=== PATIENT | male | born 1955 | race Two or more races ===

== ENCOUNTER 2017-11-03 15:50 | Inpatient (IN) | payer BC ==
[~2017-11-03] VITALS: Ht 165.1 cm; Wt 75.3 kg
[2017-11-03] MEDS ORDERED: MAGNESIUM HYDROXIDE 30 ML UDC PO PRN (17:30)
[2017-11-03] MEDS ORDERED: ACETAMINOPHEN 650 MG/SUPP.RECT RC PRN (17:30)
[2017-11-03] MEDS ORDERED: HYDROMORPHONE INJ 2 MG/ML DISP.SYRIN IV PRN (17:30)
[2017-11-03] MEDS: IV NS 0.9% 1,000 ML IV PRN (21:29)
[2017-11-03 22:00] VITALS: BP 137/87
[2017-11-03] MEDS ORDERED: CEFTRIAXONE 1 G in IV D5W 50 ML IV SCH (22:00)
[2017-11-03] MEDS ORDERED: METRONIDAZOLE 500MG/ NS 100ML 100 ML IV ONE (22:06)
[2017-11-03] MEDS: HYDROMORPHONE INJ 0.5 MG/0.5 ML SYRINGE IV PRN (22:26)
[2017-11-03] MEDS: ENOXAPARIN SODIUM 40 MG/0.4 ML DISP.SYRIN SQ SCH (22:36)
--- NOTE | 2017-11-03 23:17 | NUR ---
MS RN NOTES RECEIVE PT FROM [facility]IA [facility] WITH 2 EMT'S AT 2122, PT IS A/O X 4, ON 2LPM VIA [place] 02 SAT AT 98% STABLE, NO S/S OF DISTRESS, PATIENT KEPT COMFORTABLE AT THIS TIME, SAFETY MEASURES IN PLACE, CALL LIGHT WITHIN REACH, WILL CONTINUE TO MONITOR. HEAD TO TOE SKIN ASSESSMENT IS DONE SKIN IS INTACT, PT CONCERNED LITTLE BUMP OF LEFT HIP WILL DEFER MD, WOUND CARE CONSULT.
[2017-11-03] MEDS: METRONIDAZOLE 500MG/ NS 100ML 500 MG in PREMIX 1 EA IV SCH (23:23)
[2017-11-04] MEDS: HYDROMORPHONE INJ 0.5 MG/0.5 ML SYRINGE IV PRN ×5 (02:28→22:49)
[2017-11-04] MEDS ORDERED: METRONIDAZOLE 500MG/ NS 100ML 100 ML IV ONE (05:12)
[2017-11-04] MEDS: METRONIDAZOLE 500MG/ NS 100ML 500 MG in PREMIX 1 EA IV SCH ×4 (05:17→23:01)
--- NOTE | 2017-11-04 06:21 | NUR ---
MS RN CLOSING NOTES PATIENT IN BED COMFORTABLY ASLEEP AND EASILY AWAKEN, IN STABLE CONDITION. NOT IN FORM OF DISTRESS. NO SOB, ON 2LPM VIA NC 02 SAT 95% NEEDS ATTENDED AND ANTICIPATED. NURSING CARE RENDERED, KEPT CLEAN AND DRY AND COMFORTABLE. NO C/O OF PAIN AT THIS MOMENT. ON LOW BED TO ENSURE SAFETY, CALL LIGHT WITHIN REACH, WILL ENDORSE TO THE NEXT SHIFT CONTINUE PLAN OF CARE.
[2017-11-04] MEDS ORDERED: HYDROMORPHONE INJ 0.5 MG/0.5 ML SYRINGE ONE (06:33)
[2017-11-04 06:44] LABS: HEMATOCRIT 54 % (39-51); HEMOGLOBIN 18.8 g/dL (13.5-17.5); LYMPHOCYTES # (AUTO) 0.6 /CMM (0.8-4.8); LYMPHOCYTES % (AUTO) 2.2 % (20.0-44.0); MEAN CORPUSCULAR HEMOGLOBIN 32 PG (26.0-33.0); MEAN CORPUSCULAR HGB CONC 35 g/dl (31.0-36.0); MEAN CORPUSCULAR VOLUME 91 fL (80-96); MONOCYTES # (AUTO) 1.4 /CMM (0.1-1.30); MONOCYTES % (AUTO) 5.1 % (2.0-12.0); NEUTROPHILS # (AUTO) 24.6 /CMM (1.8-8.9); NEUTROPHILS % (AUTO) 92.7 % (43.0-81.0); PLATELET COUNT (AUTO) 277 /CMM (150-450); RDW COEFFICIENT OF VARIATION 13.8 (11.5-15.0); RED BLOOD CELL COUNT(AUTO) 5.93 MIL/uL (4.5-6.0); WHITE BLOOD COUNT (AUTO) 26.5 K/uL (4.3-11.0)
[2017-11-04 06:53] LABS: CALCIUM, SERUM 8.2 mg/dL (8.5-10.1); CREATININE 1.2 mg/dL (0.6-1.3); MAGNESIUM 1.9 mg/dL (1.8-2.4); POTASSIUM 4.3 mmol/L (3.5-5.1)
--- NOTE | 2017-11-04 07:22 | NUR ---
MS RN OPENING NOTES PATIENT RECEIVED COMFORTABLY ASLEEP IN BED, AROUSABLE EASILY. A/O X 4. VERBALLY RESPONSIVE, DENIES PAIN OR DISCOMFORTS AT THIS TIME. PT FOR HIDA SCAN TODAY, NPO MAINTAINED. ON 2LPM VIA N/C, BREATHING EVEN AND UNLABORED. IV ACCESS ON LAC INTACT AND PATENT, IVF OF NS AT 75ML/HR IN PROGRESS, NO SIGNS OF INFILTRATION NOTED. BED ON LOW/LOCKED POSITION. CALL LIGHT WITHIN REACH. WILL CONTINUE TO MONITOR PT ACCORDINGLY.
[2017-11-04] MEDS: PANTOPRAZOLE 40 MG VIAL IV SCH (07:59)
[2017-11-04 08:00] VITALS: BP 124/84
[2017-11-04] MEDS: CEFTRIAXONE 1 G in IV D5W 50 ML IV SCH (08:35)
[2017-11-04] MEDS ORDERED: HYDROMORPHONE INJ 0.5 MG/0.5 ML SYRINGE IV ONE (11:30)
[2017-11-04 11:37] LABS: ALBUMIN 3.4 g/dL (3.4-5.0); BILIRUBIN,DIRECT 0.2 mg/dL (0.0-0.2); BILIRUBIN,TOTAL 1.1 mg/dL (0.2-1.0); TOTAL PROTEIN, SERUM 7.3 g/dL (6.4-8.2)
[2017-11-04] MEDS: ONDANSETRON HCL/PF 4 MG/2 ML VIAL IVP PRN (11:39)
--- NOTE | 2017-11-04 11:45 | NUR ---
RN NOTES HUGO MURRAY ON UNIT AND REPORTED ALL ABNORMAL LAB VALUES. WILL CONTINUE TO MONITOR
[2017-11-04 12:51] LABS: BAND % (MANUAL) 3 % (0.0-5.0); LYMPHOCYTES % (MANUAL) 2 % (16-48); MONOCYTES % (MANUAL) 7 % (0-11.0); NEUTROPHILS % (MANUAL) 88 (42-76)
--- NOTE | 2017-11-04 12:55 | NUR ---
RN NOTES PATIENT JUST LEFT FOR HIDA SCAN VIA WHEEL CHAIR.
--- NOTE | 2017-11-04 13:29 | NUR ---
NM: HIDA SCAN WAS COMPLETED
[2017-11-04 16:00] VITALS: BP 122/84
[2017-11-04] MEDS: IV NS 0.9% 1,000 ML IV PRN (16:24)
--- NOTE | 2017-11-04 17:53 | NUR ---
RN NOTES PT SEEN BY DR RAYMUNDO WITH ORDER TO GIVE CLEAR LIQUID AT DINNER TIME AND NPO POST MIDNIGHT. HE ORDERED ALSO TO CHECK LIPASE LEVEL TOMORROW MORNING AND IF LBAS AND STUDIES ARE OK HE WILL PROCEED WITH SURGERY IN THE AFTERNOON. WILL CONTINUE TO MONITOR.
--- NOTE | 2017-11-04 18:27 | NUR ---
MS RN CLOSING NOTES PATIENT AWAKE AND RESTING IN BED AT MODERATE HIGH BACKREST WITH FAMILY AT BEDSIDE. A/O X 4, SAME ABLE TO MAKE NEEDS KNOWN IN [place]. ON 02 VIA N/C @ 2LPM, BREATHING EVEN AND UNLABORED, NO SIGNS OF ACUTE RESPIRATORY DISTRESS NOTED DURING THE DAY. IV ACCESS ON LAC INTACT AND PATENT WITH IVF OF NS AT 75ML/HR INFUSING, NO SIGNS OF INFILTRATION NOTED. MAINTAIN BED ON LOW/LOCKED POSITION. CALL LIGHT AND BEDSIDE TABLE KEPT WITHIN EASY REACH OF PT. NPO WILL BE ENFORCED POST MIDNIGHT, PT IS AWARE. ALL NEEDS AND CARE ATTENDED WELL. WILL ENDORESD TO PROGRAM TECHNICIAN NURSE FOR MELISSA. .
--- NOTE | 2017-11-04 19:00 | NUR ---
RN NOTES RECEIVE PT IN BED, A/O X 4, STABLE, ON O2 2LPM VIA NC 02 SAT AT 98%. NO S/S OF DISTRESS, PATIENT KEPT COMFORTABLE AT THIS TIME, SAFETY MEASURES IN PLACE, CALL LIGHT WITHIN REACH, WILL CONTINUE TO MONITOR.
[2017-11-04 20:00] VITALS: BP 133/86
[2017-11-04] MEDS: ENOXAPARIN SODIUM 40 MG/0.4 ML DISP.SYRIN SQ SCH (21:00)
--- NOTE | 2017-11-04 21:00 | NUR ---
LOVENOX 40 MG NON ADMINISTRATION PER PT HE DOESN'T WANT IT DESPITE EXPLAINING RISK AND BENEFITS OFFERED 3 TIMES STILL REFUSED M.D ON JULIA;L MADE AWARE
[2017-11-05] VITALS (16 sets, daily range): BP systolic 110–145; BP diastolic 72–97
[2017-11-05] MEDS: HYDROMORPHONE INJ 0.5 MG/0.5 ML SYRINGE IV PRN ×3 (02:51→11:25)
[2017-11-05] MEDS: METRONIDAZOLE 500MG/ NS 100ML 500 MG in PREMIX 1 EA IV SCH (05:03)
--- NOTE | 2017-11-05 06:21 | NUR ---
MS RN CLOSING NOTES PT COMFORTABLY ASLEEP IN BED AND EASILY AWAKEN, NOT IN RESPIRATORY DISTRESS ON 2LPM VIA NC 02 SAT AT 100% HEAD OF BED ELEVATED AT ALL TIMES FOR BETTER LUNG EXPANSION AND GOOD CIRCULATION. STABLE, NOT APPEAR IN DISTRESS. NEEDS ATTENDED AND ANTICIPATED. KEPT CLEAN AND DRY AND COMFORTABLE. NURSING CARE RENDERED. ON LOW BED TO ENSURE SAFETY, CALL LIGHT WITHIN REACH, WILL ENDORSE TO THE NEXT SHIFT CONTINUE PLAN OF CARE.
[2017-11-05] MEDS ORDERED: HYDROMORPHONE INJ 0.5 MG/0.5 ML SYRINGE ONE (06:39)
[2017-11-05 06:46] LABS: CALCIUM, SERUM 7.2 mg/dL (8.5-10.1); CREATININE 1.7 mg/dL (0.6-1.3); POTASSIUM 4.4 mmol/L (3.5-5.1)
[2017-11-05 06:49] LABS: HEMATOCRIT 51 % (39-51); HEMOGLOBIN 17.5 g/dL (13.5-17.5); LYMPHOCYTES # (AUTO) 0.7 /CMM (0.8-4.8); LYMPHOCYTES % (AUTO) 2.3 % (20.0-44.0); MEAN CORPUSCULAR HEMOGLOBIN 31 PG (26.0-33.0); MEAN CORPUSCULAR HGB CONC 34 g/dl (31.0-36.0); MEAN CORPUSCULAR VOLUME 91 fL (80-96); MONOCYTES # (AUTO) 1.1 /CMM (0.1-1.30); MONOCYTES % (AUTO) 3.5 % (2.0-12.0); NEUTROPHILS # (AUTO) 28.8 /CMM (1.8-8.9); NEUTROPHILS % (AUTO) 94.2 % (43.0-81.0); PLATELET COUNT (AUTO) 218 /CMM (150-450); RDW COEFFICIENT OF VARIATION 14.3 (11.5-15.0); RED BLOOD CELL COUNT(AUTO) 5.61 MIL/uL (4.5-6.0)
[2017-11-05 06:53] LABS: WHITE BLOOD COUNT (AUTO) 30.5 K/uL (4.3-11.0)
--- NOTE | 2017-11-05 07:09 | NUR ---
ENDORSE TO LAURIE CALL MD FOR AM LABS ABOUT CH WBC
[2017-11-05 07:21] LABS: BAND % (MANUAL) 6 % (0.0-5.0); MONOCYTES % (MANUAL) 3 % (0-11.0); NEUTROPHILS % (MANUAL) 91 (42-76)
--- NOTE | 2017-11-05 07:30 | NUR ---
MS RN OPENING NOTES RECEIVED PATIENT AWAKE IN BED IN NO ACUTE SIGNS OF DISTRESS. A/O X 4, MALAYSIAN SPEAKING, NO C/O PAIN OR DISCOMFORTS AT THIS TIME. ON 02 VIA N/C @ 2LPM, BREATHING EVEN AND UNLABORED. IV ACCESS ON LAC INTACT AND PATENT WITH IVF OF NS @ 75ML/HR INFUSING WELL, NO SIGNS OF INFILTRATION NOTED. BED IN LOW/LOCKED POSITION. CALL LIGHT AND BEDSIDE TABLE WITHIN EASY REACH OF PT. NPO MAINTAINED. ALL NEEDS AND CARE ATTENDED WELL. WILL CONTINUE TO MONITOR.
[2017-11-05 07:49] LABS: INR 1.3 (0.87-1.13)
[2017-11-05] MEDS: CEFTRIAXONE 1 G in IV D5W 50 ML IV SCH (08:21)
[2017-11-05] MEDS: PANTOPRAZOLE 40 MG VIAL IV SCH (08:21)
[2017-11-05] MEDS: ONDANSETRON HCL/PF 4 MG/2 ML VIAL IVP PRN ×2 (08:24→13:22)
--- NOTE | 2017-11-05 09:30 | NUR ---
RN NOTES PT'S HIGH WBC 30.5, LIPASE 6860, BUN 46, CREATININE 1.7 AND ALL OTHER ABNORMAL LAB RESULTS REPORTED TO HUGO MURRAY WITH ORDER TO D/C FLAGYL IV AND ROCEPHIN IV AND TO START ON IV MERREM 500MG Q 12HRS AND IV ZITHROMAX 250 Q24HRS, SAME ORDER TO COLLECT URINE SPECIMEN FO URINALYSIS PROFILE. CARDIO AND NEPHRO CONSULT ORDERED WELL. WILL CONTINUE TO MONITOR
--- NOTE | 2017-11-05 09:39 | NUR ---
RN NOTES URINE SPECIMEN COLLECTED AND CALLED LAB TO PICK IT UP.
[2017-11-05] MEDS ORDERED: VANCOMYCIN 1 GM in IV D5W 250 ML IV STA (09:58)
[2017-11-05] MEDS ORDERED: MEROPENEM 1,000 MG in IV NS 0.9% 100 ML IV SCH (10:00)
--- NOTE | 2017-11-05 11:10 | NUR ---
RT EKG DONE PER MD ORDER. REPORTED TO [facility]. NO SOB NOTED AT THIS TIME.
[2017-11-05] MEDS ORDERED: IV NS 0.9% 1,000 ML BAG IV ONE (11:30)
[2017-11-05 11:56] LABS: ALBUMIN 2.8 g/dL (3.4-5.0); BILIRUBIN,DIRECT 0.3 mg/dL (0.0-0.2); BILIRUBIN,TOTAL 1.4 mg/dL (0.2-1.0); TOTAL PROTEIN, SERUM 6.5 g/dL (6.4-8.2)
[2017-11-05 11:56] LABS: APPEARANCE,URINE CLEAR (CLEAR); BILIRUBIN,URINE NEGATIVE (NEGATIVE); BLOOD, URINE 1+ Ery/uL (NEGATIVE); COLOR,URINE ORANGE (YELLOW); KETONES,URINE NEGATIVE (NEGATIVE); LEUKOCYTE ESTERASE ,URINE NEGATIVE (NEGATIVE); NITRITE, URINE POSITIVE (NEGATIVE); PROTEIN,URINE 2+ mg/dl (NEGATIVE); UGLUCOSE TRACE mg/dL (NEGATIVE); UROBILINOGEN,URINE 0.2 EU/dL (0.2)
[2017-11-05 12:03] LABS: BACTERIA,URINE None seen /HPF (None Seen); RBC,URINE 0-2 /HPF (0-2); SQUAMOUS EPITHELIAL CELL,UR 0-2 /HPF (None Seen); WBC,URINE 0-2 /HPF (0-3)
[2017-11-05 12:04] LABS: MUCUS,URINE Few /LPF (None Seen); URINE AMORPHOUS URATE Few /HPF (None Seen)
--- NOTE | 2017-11-05 12:08 | NUR ---
RN NOTES PATIENT TRANSFERRED TO ICU AWAKE, ALERT AND ORIENTED X4. REPORT GIVEN TO ICU NURSE CLAIR.
[2017-11-05] MEDS: AZITHROMYCIN 500 MG in IV D5W 250 ML IV SCH (13:02)
[2017-11-05 14:05] LABS: ABG BASE EXCESS -2.6 mmol/L; ABG OXYGEN SATURATION 95.4 % (92.0-98.5); ABG PCO2 37.5 mmHg (35.0-45.0); ABG PH 7.385 (7.350-7.450); ABG PO2 75.5 mmHg (75.0-100.0); COHb 1.1 % (0.5-1.5); MetHb 0.7 % (0.0-1.5); O2Hb 93.7 % (94.0-97.0); SITE, ABG Left Radial; VENT MODE, BG NRB
[2017-11-05] MEDS ORDERED: ONDANSETRON HCL/PF 4 MG/2 ML VIAL IVP PRN (14:30)
[2017-11-05] MEDS: HYDROMORPHONE 1 MG/1 ML DISP.SYRIN IV PRN ×3 (15:01→22:14)
[2017-11-05] MEDS: MEROPENEM 1,000 MG in IV NS 0.9% 100 ML IV SCH (15:26)
--- NOTE | 2017-11-05 15:44 | NUR ---
FACTORY ENGINEER NOTE 1210: Received patient from MS. Awake, A/Ox4, Lao speaking, understands little Turkmen. Noted with 89% O2 sat on 4LPM of O2, placed on 6LPM of O2 via NC, sat 92% will monitor. 2PIVs intact. IV bolus ongoing 1L. With 2/10 abdominal pain, patient aware he just took 1 1/2 hour ago Dilaudid 1mg. 1220: S/E by Dr. Sorenson, placed Fuentes cath as ordered. Noted with clear coretta colored urine drained to BSD. 1345: Made Ovidio RESTRICTIVE PREPARATION OPERATOR aware re: pain med if able to increase frequency, he said he will come see patient soon. Also given Zofran and cchanged to q4 from q6. 1430: Placed on 10LPM of O2 simple mask for 91% O2 sat, made Ovidio RESTRICTIVE PREPARATION OPERATOR aware. S/E by Dr. Gonzalez, said to place on 15LPM NRB mask. 1445: Dr. Gonzalez aware for the ABG, will keep on 15LPM NRB mask per MD. Nolan changed order of Dilaudid 1mg to q3. 1500: Gave Dilaudid 1mg. 1530: Patient sleeping at this time, able to arouse easily. 93% O2 sat on 15LPM of O2 via NRB mask. No significant changes noted at this time. Kept clean, warm and dry. Needs attended. Kept call light at reach.
--- NOTE | 2017-11-05 18:25 | NUR ---
SEAM TAPER MACHINE NOTE No any significant cahnges. Kept on 15LPM of O2 via NRB mask. Sleeping, able to arouse easily.PIVs intact. IVF infusing as ordered.Kept clean, warm and dry. Fuentes cath intact, noted with 150-200mL q2.
[2017-11-05] MEDS: IV NS 0.9% 1,000 ML IV PRN (18:45)
--- NOTE | 2017-11-05 20:00 | NUR ---
received pt from day shift, a/o x4, follows commands, on non rebreather mask at 15L, NPO, f/c OK output, v/s stable, c/o pain, Dilaudid will be given, pt turns and repositions by himself.
[2017-11-05] MEDS: HEPARIN SODIUM, PORCINE 5000 UNITS/1 ML VIAL SQ SCH (21:19)
[2017-11-05] MEDS ORDERED: ACETAMINOPHEN 325 MG TABLET PO PRN (21:30)
[2017-11-06] VITALS (24 sets, daily range): BP systolic 99–146; BP diastolic 55–93
--- NOTE | 2017-11-06 00:25 | NUR ---
pt is resting in the bed, v/s stable, Dilaudid 1mg ivp given for pain.
[2017-11-06] MEDS: MEROPENEM 1,000 MG in IV NS 0.9% 100 ML IV SCH ×2 (01:20→13:04)
[2017-11-06] MEDS: IV NS 0.9% 1,000 ML IV PRN ×3 (01:21→22:50)
[2017-11-06] MEDS: HYDROMORPHONE 1 MG/1 ML DISP.SYRIN IV PRN ×2 (01:21→04:22)
--- NOTE | 2017-11-06 04:31 | NUR ---
pt is resting in the bed, no acute distress overnight, SR, ST, on non rebreather at 15L, sat 92-95%, OK urine output, v/s stable, c/o pain, Dilaudid 1mg ivp given, pt cleaned and changed.
[2017-11-06 05:40] LABS: BASOPHILS % (AUTO) 0.1 % (0.0-2.0); HEMATOCRIT 45 % (39-51); HEMOGLOBIN 15.2 g/dL (13.5-17.5); LYMPHOCYTES # (AUTO) 0.8 /CMM (0.8-4.8); LYMPHOCYTES % (AUTO) 3.4 % (20.0-44.0); MEAN CORPUSCULAR HEMOGLOBIN 31 PG (26.0-33.0); MEAN CORPUSCULAR HGB CONC 34 g/dl (31.0-36.0); MEAN CORPUSCULAR VOLUME 93 fL (80-96); MONOCYTES # (AUTO) 0.9 /CMM (0.1-1.30); NEUTROPHILS # (AUTO) 21.1 /CMM (1.8-8.9); NEUTROPHILS % (AUTO) 92.5 % (43.0-81.0); PLATELET COUNT (AUTO) 162 /CMM (150-450); RDW COEFFICIENT OF VARIATION 14.3 (11.5-15.0); RED BLOOD CELL COUNT(AUTO) 4.86 MIL/uL (4.5-6.0); WHITE BLOOD COUNT (AUTO) 22.9 K/uL (4.3-11.0)
[2017-11-06 05:50] LABS: ALBUMIN 2.2 g/dL (3.4-5.0); BILIRUBIN,DIRECT 0.2 mg/dL (0.0-0.2); BILIRUBIN,TOTAL 1.1 mg/dL (0.2-1.0); CALCIUM, SERUM 6.7 mg/dL (8.5-10.1); CREATININE 1.1 mg/dL (0.6-1.3); POTASSIUM 3.8 mmol/L (3.5-5.1); TOTAL PROTEIN, SERUM 5.7 g/dL (6.4-8.2)
[2017-11-06] MEDS ORDERED: HYDROMORPHONE INJ 2 MG/ML DISP.SYRIN ONE (06:14)
[2017-11-06] MEDS ORDERED: HYDROMORPHONE 1 MG/1 ML DISP.SYRIN IV PRN (06:30)
--- NOTE | 2017-11-06 07:00 | NUR ---
RN NOTES RECEIVED PT ON BED, A/Ox4, RESPIRATION EVEN AND UNLABORED, ON SOB NOTE, ON NR MASK AT 15L, O2 SAT 92%, ON TELE SR , HR IN 90'S , ADAME DRAINING TO GRAVITY WITH DIANA COLOR URIN , NPO AT THIS TIME , C/O ABDOMINAL PAIN , DOES NOT WANT PAIN MED AT THIS TIME , L HAND IV SITE G 20 SITE CDI, WITH NS RUNNING AT 150CC/HR , SR UP x3, CALL LIGHT WITHIN EASY REACH, BED LOCKED AND IN LOWEST POSITION ,CONTINUE TO MONITOR PT CLSOELY
[2017-11-06] MEDS: PANTOPRAZOLE 40 MG VIAL IV SCH (08:00)
[2017-11-06] MEDS: HEPARIN SODIUM, PORCINE 5000 UNITS/1 ML VIAL SQ SCH ×2 (08:01→21:00)
[2017-11-06] MEDS: HYDROMORPHONE INJ 0.5 MG/0.5 ML SYRINGE IV PRN ×6 (08:29→22:07)
--- NOTE | 2017-11-06 08:35 | NUR ---
WOUND CARE CONSULT: PT INDEPENDENT WITH BED MOBILITY. CURRENT NIURKA SCORE NOTED TO BE 20. PT HAS SMALL SOFT LUMP TO LEFT HIP AREA, NO DRAINAGE, REDNESS OR TENDERNESS NOTED. DEFER TO MD. WILL SEE PRN.
--- NOTE | 2017-11-06 10:00 | NUR ---
RN NOTES PT INSTRUCTED HOW TO USE I/S, PT RETURNED DEMONSTRATION , CONTINUE TO MONITOR
[2017-11-06 10:04] LABS: ABG BASE EXCESS 1.9 mmol/L; ABG OXYGEN SATURATION 95.9 % (92.0-98.5); ABG PCO2 44.9 mmHg (35.0-45.0); ABG PO2 80.6 mmHg (75.0-100.0); AaDO2 587.5 mmHg; COHb 0.4 % (0.5-1.5); MetHb 0.7 % (0.0-1.5); O2Hb 94.8 % (94.0-97.0); SITE, ABG Right Brachial; VENT MODE, BG non rebreather
--- NOTE | 2017-11-06 11:00 | NUR ---
RN NOTES PT WALKED AROUND NURSING STATION WITH PT , TOLERATED WELL, NO DISTRESS NOTED.
[2017-11-06] MEDS: AZITHROMYCIN 500 MG in IV D5W 250 ML IV SCH (11:04)
--- NOTE | 2017-11-06 14:00 | NUR ---
RN NOTES PT SITTING ON A CHAIR , NO SOB NOTED, SUPPORTIVE FAMILY AT THE BEDSIDE .
--- NOTE | 2017-11-06 16:07 | NUR ---
RN NOTES T=100.8 ORALLY, TYLENOL 650 SUPPOSITORY GIVEN , CONTINUE TO MONITOR .
--- NOTE | 2017-11-06 18:33 | NUR ---
RN NOTES PT RESTING AT THIS TIME , ON NR MASK, O2 SAT 95%, ON TELE ST HR IN 100'S, NPO , NS AT 100C/HR RUNNING VIA L FA IV, SITE CDI, T=99.1, BED LOCKED AND IN LOWEST POSITION , WILL ENDORSE TO TRAVEL AGENCY MANAGER NURSE FOR MELISSA.
--- NOTE | 2017-11-06 19:30 | NUR ---
BROTHEL KEEPER INITIAL NOTES RECEIVED PATIENT AWAKE A/OX 4, ABLE TO MAKE NEEDS KNOWN, PATIENT MOANING, C/O 9/10 ABDOMINAL AND BACK PAIN. NO RESPIRATORY DISTRESS NOTED, ON [id number] NON-REBREATHER. SKIN WARM AND DRY TO TOUCH. ON TELE MONITOR SINUS TACH. F/C DRAINING BY GRAVITY, PATENT AND INTACT. WITH IVF RUNNING. HOB ELEVATED. SIDE RAILS UP AND LOCKED. BED KEPT AT LOWEST POSITION. CALL LIGHT KEPT WITHIN EASY REACH. WILL CONTINUE TO MONITOR.
--- NOTE | 2017-11-06 20:30 | NUR ---
OBSERVED PATIENT WITH INCENTIVE SPIROMETER, ABLE TO INHALE AND HOLD [phone]. TOLERATED WELL. WILL CONTINUE TO MONITOR.
[2017-11-07] VITALS (20 sets, daily range): BP systolic 94–159; BP diastolic 49–99
[2017-11-07] MEDS: HYDROMORPHONE INJ 0.5 MG/0.5 ML SYRINGE IV PRN ×9 (00:16→23:10)
[2017-11-07] MEDS: MEROPENEM 1,000 MG in IV NS 0.9% 100 ML IV SCH ×2 (02:07→14:37)
--- NOTE | 2017-11-07 02:36 | NUR ---
ALL [facility] ONCE CLEARED FOR PATIENTS SAFETY
--- NOTE | 2017-11-07 04:00 | NUR ---
PATIENT C/O 9/10 BACK AND ABDOMINAL PAIN. REQUESTED TO SIT ON CHAIR AT BEDSIDE TO HELP ALLEVIATED PAIN. ASSISTED PATIENT TO CHAIR, WITH PROBLEM. WILL CONTINUE TO MONITOR.
[2017-11-07 05:04] LABS: BASOPHILS % (AUTO) 0.1 % (0.0-2.0); HEMATOCRIT 43 % (39-51); HEMOGLOBIN 14.6 g/dL (13.5-17.5); LYMPHOCYTES # (AUTO) 0.6 /CMM (0.8-4.8); LYMPHOCYTES % (AUTO) 2.9 % (20.0-44.0); MEAN CORPUSCULAR HEMOGLOBIN 31 PG (26.0-33.0); MEAN CORPUSCULAR HGB CONC 34 g/dl (31.0-36.0); MEAN CORPUSCULAR VOLUME 92 fL (80-96); MONOCYTES # (AUTO) 0.8 /CMM (0.1-1.30); MONOCYTES % (AUTO) 3.7 % (2.0-12.0); NEUTROPHILS # (AUTO) 19.7 /CMM (1.8-8.9); NEUTROPHILS % (AUTO) 93.3 % (43.0-81.0); PLATELET COUNT (AUTO) 209 /CMM (150-450); RDW COEFFICIENT OF VARIATION 14.2 (11.5-15.0); RED BLOOD CELL COUNT(AUTO) 4.66 MIL/uL (4.5-6.0); WHITE BLOOD COUNT (AUTO) 21.1 K/uL (4.3-11.0)
[2017-11-07 05:13] LABS: POTASSIUM 4.3 mmol/L (3.5-5.1)
[2017-11-07 05:49] LABS: BAND % (MANUAL) 2 % (0.0-5.0); LYMPHOCYTES % (MANUAL) 3 % (16-48); MONOCYTES % (MANUAL) 3 % (0-11.0); NEUTROPHILS % (MANUAL) 92 (42-76)
--- NOTE | 2017-11-07 06:42 | NUR ---
MANAGER SOLAR CLOSING NOTES NO SIGNIFICANT CHANGES OVERNIGHT, PAIN MONITORED AND MANAGED NEEDED. ALL NEEDS ANTICIPATED AND MET. PATIENT USED INCENTIVE SPIROMETER WHILE AWAKE. SAT AT BEDSIDE FOR SHORT PERIOD OF TIME. STILL WITH C/O ABDOMINAL AND BACK PAIN. NO RESPIRATORY DISTRESS NOTED ON 15LPM NON-REBREATHER. F/C PATENT AND INTACT, DRAINING BY GRAVITY. IVF RUNNING AT 100ML/HR. SIDE RAILS UP AND LOCKED. BED KEPT AT LOWEST POSITION. CALL LIGHT KEPT WITHIN EASY REACH. WILL ENDORSE CONTINUITY OF CARE TO AM NURSE.
--- NOTE | 2017-11-07 07:10 | NUR ---
RN INITIAL NOTES RECEIVED PT AWAKE, A/OX4. NO RESPIRATORY DISTRESS NOTED. NO SOB NOTED. PT ON NON-REBREATHER AT 15LPM. HOB ELEVATED. C/O ABDOMINAL PAIN. IV LINES IN PLACE. IVF: NS AT 100ML/HR INFUSING. FC IN PLACE. NO HEMATURIA NOTED. BLE ELEVATED. WILL CONTINUE TO MONITOR.
[2017-11-07] MEDS: PANTOPRAZOLE 40 MG VIAL IV SCH (07:46)
[2017-11-07] MEDS: HEPARIN SODIUM, PORCINE 5000 UNITS/1 ML VIAL SQ SCH ×2 (08:14→21:06)
--- NOTE | 2017-11-07 08:30 | NUR ---
RN NOTES SEEN AND EXAMINED BY JORDAN MURRAY NP. AWARE OF CURRENT LAB VALUES: WBC 21.1, HGB 14.6, HCT 43. SODIUM 150, POTASSIUM 4.3, BUN 26, CREA 1.0. ON IVF. PT A/OX4. PT C/O ABDOMINAL PAIN, GIVEN PAIN MEDICATION ORDERED. WILL CONTINUE TO MONITOR.
[2017-11-07] MEDS: IV NS 0.9% 1,000 ML IV PRN (09:16)
[2017-11-07] MEDS: AZITHROMYCIN 500 MG in IV D5W 250 ML IV SCH (10:58)
--- NOTE | 2017-11-07 13:30 | NUR ---
RN NOTES SEEN AND EXAMINED BY DR. RAYMUNDO. AWARE OF CURRENT LAB WORKS AND CXR RESULT. PT STILL C/O ABDOMINAL PAIN. GIVEN PAIN MED ORDERED AND NOTED EFFECTIVE. WILL KEEP PT ON NPO. WILL CONTINUE TO MONITOR.
--- NOTE | 2017-11-07 15:35 | NUR ---
RN NOTES SEEN AND EXAMINED BY DR. FERNANDES. AWARE OF CURRENT LAB VALUES AND CXR RESULT. PT PLACED ON 02 AT 5LPM VIA NC. KEPT 02 SAT ABOVE 92%. HOB ELEVATED. WILL CLOSELY MONITOR.
--- NOTE | 2017-11-07 18:45 | NUR ---
RN NOTES PT TRANSFERRED TO ROOM 205. PT ON 02 AT 5PM VIA NC. NO RESPIRATORY DISTRESS NOTED. DENIES ANY PAIN. IV LINES IN PLACE. IVF INFUSING. PT COMFORTABLE. REPORT GIVEN TO RN AT BEDSIDE. TOOK OVER PT'S CARE. IN STABLE CONDITION
--- NOTE | 2017-11-07 19:30 | NUR ---
RN NOTES RECEIVED PATIENT IN BED AWAKE, AO X 3, ABLE TO MAKE NEEDS KNOWN. NO ACUTE DISTRESS NOTED. MONITORED FOR PAIN. IV SITE PATENT, INTACT; IVF INFUSING ORDERED. ADAME CATH PATENT, INTACT; DRAINING CLEAR DARK YELLOW URINE. SAFETY REMINDERS GIVEN. ON LOW BED WITH BILATERAL UPPER SIDE RAILS UP. CALL [place] WITHIN EASY REACH. WILL CONTINUE TO MONITOR.
[2017-11-08] MEDS: MEROPENEM 1,000 MG in IV NS 0.9% 100 ML IV SCH ×2 (02:57→13:33)
[2017-11-08] MEDS: IV NS 0.9% 1,000 ML IV PRN (03:01)
[2017-11-08 06:36] LABS: HEMATOCRIT 41 % (39-51); HEMOGLOBIN 14.1 g/dL (13.5-17.5); LYMPHOCYTES # (AUTO) 0.5 /CMM (0.8-4.8); LYMPHOCYTES % (AUTO) 3.3 % (20.0-44.0); MEAN CORPUSCULAR HEMOGLOBIN 31 PG (26.0-33.0); MEAN CORPUSCULAR HGB CONC 34 g/dl (31.0-36.0); MEAN CORPUSCULAR VOLUME 92 fL (80-96); MONOCYTES # (AUTO) 0.8 /CMM (0.1-1.30); MONOCYTES % (AUTO) 4.5 % (2.0-12.0); NEUTROPHILS # (AUTO) 15.4 /CMM (1.8-8.9); NEUTROPHILS % (AUTO) 92.2 % (43.0-81.0); PLATELET COUNT (AUTO) 191 /CMM (150-450); RDW COEFFICIENT OF VARIATION 14.2 (11.5-15.0); WHITE BLOOD COUNT (AUTO) 16.7 K/uL (4.3-11.0)
[2017-11-08 06:44] LABS: CREATININE 0.8 mg/dL (0.6-1.3); POTASSIUM 3.8 mmol/L (3.5-5.1)
[2017-11-08] MEDS: HYDROMORPHONE INJ 0.5 MG/0.5 ML SYRINGE IV PRN ×2 (06:44→11:03)
--- NOTE | 2017-11-08 07:49 | NUR ---
MS/RN OPENING NOTE PATIENT IN BED IN STABLE CONDITION. A/O X 4. NO SIGNS OF ACUTE DISTRESS. NO COMPLAIN OF PAIN OR DISCOMFORT. NPO STATUS AT THIS TIME. ALL NEEDS ATTENDED TO. CALL LIGHT WITHIN REACH. WILL CONTINUE TO MONITOR TO ENSURE SAFETY.
[2017-11-08] MEDS: PANTOPRAZOLE 40 MG VIAL IV SCH (08:53)
[2017-11-08] MEDS: HEPARIN SODIUM, PORCINE 5000 UNITS/1 ML VIAL SQ SCH ×2 (08:54→21:00)
[2017-11-08 09:17] VITALS: BP 142/93
[2017-11-08] MEDS: AZITHROMYCIN 500 MG in IV D5W 250 ML IV SCH (11:03)
[2017-11-08] MEDS: IV 1/2NS 1000 ML 1,000 ML IV PRN (11:05)
--- NOTE | 2017-11-08 15:20 | NUR ---
MS/RN SEEN BY DR RAYMUNDO PATIENT SEEN BY DR RAYMUNDO WITH ORDERS TO START CLEAR LIQUID AND NPO POST MIDNIGHT.
--- NOTE | 2017-11-08 18:39 | NUR ---
MS/RN CLOSING NOTE PATIENT IN BED IN STABLE CONDITION. A/O X 4. NO SIGNS OF ACUTE DISTRESS. NO COMPLAIN OF PAIN OR DISCOMFORT. ALL NEEDS ATTENDED TO. CALL LIGHT WITHIN REACH. WILL ENDORSE TO NEXT SHIFT FOR CONTINUITY OF CARE.
--- NOTE | 2017-11-08 19:20 | NUR ---
MS/RN OPENING NOTE RECEIVED PATIENT IN BED IN STABLE CONDITION. A/O X 4. NO SIGNS OF ACUTE DISTRESS. NO COMPLAIN OF PAIN OR DISCOMFORT. ON NPO AT THIS TIME, PT VERBALIZED UNDERSTANDING. ALL NEEDS ATTENDED AND MET. CALL LIGHT WITHIN REACH. SAFETY PRECAUTIONS OBSERVED. WILL CONTINUE TO MONITOR..
[2017-11-08 20:00] VITALS: BP 138/74
--- NOTE | 2017-11-08 21:23 | NUR ---
pt for possible surgery in am , endorsed by day shift and also per pt, but no order yet, relayed to isaias per isaias to hold heparin dose tonight, pt is ambulatory, frequently walking.
[2017-11-09] MEDS: HYDROMORPHONE INJ 0.5 MG/0.5 ML SYRINGE IV PRN ×2 (00:46→06:45)
[2017-11-09] MEDS: MEROPENEM 1,000 MG in IV NS 0.9% 100 ML IV SCH ×2 (02:34→17:13)
[2017-11-09 06:28] LABS: EOSINOPHILS % (AUTO) 0.1 % (0.0-6.0); HEMATOCRIT 42 % (39-51); HEMOGLOBIN 14.2 g/dL (13.5-17.5); LYMPHOCYTES # (AUTO) 0.8 /CMM (0.8-4.8); LYMPHOCYTES % (AUTO) 5.1 % (20.0-44.0); MEAN CORPUSCULAR HEMOGLOBIN 31 PG (26.0-33.0); MEAN CORPUSCULAR HGB CONC 34 g/dl (31.0-36.0); MEAN CORPUSCULAR VOLUME 92 fL (80-96); MONOCYTES # (AUTO) 0.9 /CMM (0.1-1.30); MONOCYTES % (AUTO) 5.5 % (2.0-12.0); NEUTROPHILS # (AUTO) 14.3 /CMM (1.8-8.9); NEUTROPHILS % (AUTO) 89.3 % (43.0-81.0); PLATELET COUNT (AUTO) 205 /CMM (150-450); RED BLOOD CELL COUNT(AUTO) 4.55 MIL/uL (4.5-6.0); WHITE BLOOD COUNT (AUTO) 16.1 K/uL (4.3-11.0)
--- NOTE | 2017-11-09 06:55 | NUR ---
RN NOTES PATIENT IN BED IN STABLE CONDITION. A/O X 4. NO SIGNS OF ACUTE DISTRESS. NO COMPLAIN OF PAIN OR DISCOMFORT. ON NPO AT THIS TIME, PT VERBALIZED UNDERSTANDING. ALL NEEDS ATTENDED AND MET. ALL DUE MEDS GIVEN. CALL LIGHT WITHIN REACH. SAFETY PRECAUTIONS OBSERVED. WILL ENDORSE TO NEXT SHIFT FOR MELISSA. .
[2017-11-09 06:58] LABS: CALCIUM, SERUM 7.2 mg/dL (8.5-10.1); CREATININE 0.9 mg/dL (0.6-1.3); MAGNESIUM 2.6 mg/dL (1.8-2.4); POTASSIUM 3.9 mmol/L (3.5-5.1)
[2017-11-09 08:00] VITALS: BP 148/94
--- NOTE | 2017-11-09 08:00 | NUR ---
MS/RN AM NOTE PATIENT IN BED A/O X 4. NO SIGNS OF ACUTE DISTRESS. NO COMPLAIN OF PAIN OR DISCOMFORT. NPO STATUS AT THIS TIME FOR PENDING SX BY DR INIGUEZ.CALLED DR INIGUEZ WHO STATED THAT HE WILL CHECK WITH OR FOR AVAILABILITY. ALL NEEDS ATTENDED TO. CALL LIGHT WITHIN REACH. WILL CONTINUE TO MONITOR TO ENSURE SAFETY.
[2017-11-09] MEDS: HEPARIN SODIUM, PORCINE 5000 UNITS/1 ML VIAL SQ SCH ×2 (09:00→22:49)
[2017-11-09] MEDS: PANTOPRAZOLE 40 MG VIAL IV SCH (09:07)
[2017-11-09] MEDS: IV 1/2NS 1000 ML 1,000 ML IV PRN (10:59)
[2017-11-09] MEDS: AZITHROMYCIN 500 MG in IV D5W 250 ML IV SCH (10:59)
--- NOTE | 2017-11-09 11:39 | NUR ---
TONY BAGLEY ADDRESS CHANGE CLERK CAME AND ORDERED FOR THE ADAME CATHETER BE REMOVED SAYING PT DOESN'T NEED IT AND JUST TO INSERT ADAME CATH IF PT IS RETAINING
--- NOTE | 2017-11-09 11:56 | NUR ---
CLARIFIED DC OF ADAME TO DR INIGUEZ WHO REFUSED FOR THE ADAME TO BE REMOVED SAYING SX HAS TO BE DONE ON THIS PT AND NOT TO REMOVE THE ADAME.
[2017-11-09] MEDS ORDERED: Sodium Bicarbonate 150 MEQ in IV D5W 1,000 ML IV PRN (12:00)
--- NOTE | 2017-11-09 12:23 | NUR ---
RECHECKED OXYGEN SATURATION OF PT ON ROOM AIR AND RANGES FROM 87-97%.ENCOURAGED TO DO DEEP BREATHING.PT DENIES SOB OR DISTRESS AND IS VERY RELAXED AT THIS TIME.
[2017-11-09] MEDS ORDERED: IV D5W 1,000 ML IV SCH (12:30)
[2017-11-09] MEDS ORDERED: POTASSIUM PHOSPHATE MM 7.5 MMOL in IV D5W 100 ML IV SCH ×2 (12:30→18:00)
--- NOTE | 2017-11-09 13:08 | NUR ---
O.R. STAFF IS HERE TO PLUG SHAPER HAND MY PT FOR LAPARATOMY CHOLECYSTECTOMY POSSIBLE OPEN.CONSENTS HAS BEEN SIGNED.
--- NOTE | 2017-11-09 13:20 | NUR ---
TO O. R. FOR LAP VERNON WITH POSSIBLE OPEN SX WITH STABLE V/S.
[2017-11-09] MEDS ORDERED: FENTANYL PF 100MCG/2ML AMPUL ONE (13:39)
[2017-11-09] MEDS ORDERED: ROCURONIUM BROMIDE 50 MG/5 ML ONE (13:39)
[2017-11-09] MEDS ORDERED: SUCCINYLCHOLINE CHLORIDE 20 MG/ML VIAL ONE (13:39)
[2017-11-09] MEDS ORDERED: LIDOCAINE 0.5% HCL 50 ML VIAL ONE (13:49)
[2017-11-09] MEDS ORDERED: BUPIVACAINE 0.25% 75 MG/30 ML VIAL ONE (13:49)
[2017-11-09] MEDS ORDERED: CELLULOSE,OXIDIZED 1 EA PACK MC ONE (15:25)
[2017-11-09] MEDS ORDERED: ANESTHESIA TRAY IN PYXIS 1 EA TRAY MC ONE (16:29)
--- NOTE | 2017-11-09 17:00 | NUR ---
PT CAME BACK FROM OR S/P LAP VERNON WITH MARY DRAINAGE IN PLACE DRAINING SEROSANGUINOUS SURGICAL WOUND DRAINAGE.DRESSING DRY INTACT.WITH ADAME CATH IN PLACE DRAINING YELLOW URINE OUTPUT MODERATE IN AMT.FAMILY AT BEDSIDE.HOOKED TO D5W AT 100 ML/HR INFUSING WELL TO LFA.STABLE V/S.WILL CONTINUE TO MONITOR.CALL LIGHT PLACED WITHIN REACH.
[2017-11-09] MEDS ORDERED: HYDROCODONE/APAP 5/325MG 1 EACH TABLET PO PRN (18:00)
[2017-11-09] MEDS ORDERED: MORPHINE SULFATE INJ 4 MG/ML DISP.SYRIN IV PRN (18:00)
[2017-11-09] MEDS ORDERED: IV LR 1000 ML 1,000 ML IV PRN (18:00)
--- NOTE | 2017-11-09 18:00 | NUR ---
PT RESTING IN BED WITH NO C/O PAIN OR DISTRESS.INSTRUCTED TO USE HIS INCENTIVE SPIROMETER Q 1 HR WHILE AWAKE.WITH ONGOING IVF OF D5W AT 100 ML/HR TO BE CHANGED TO IVF LR.ENDORSED TO NIGHT NURSE CARE.WITH MARY DRAINAGE INTACT TO RT ABDOMEN DRAINING SEROSANGUINOUS SURGICAL WOUND DRAINAGE 75 ML IN AMT.ADAME CATHETER INTACT DRAINING YELLOW URINE OUTPUT.CALL LIGHT PLACED WITHIN REACH.
[2017-11-09] MEDS: ACETYLCYSTEINE 10% SOLN 400 MG/4 ML VIAL PO SCH (19:00)
--- NOTE | 2017-11-09 19:00 | NUR ---
CALLED PHARMACY FOR THE DELIVERY OF THE POTASSIUM IV 2X WHICH IS OVERDUE AND SPOKE TO BIANCA,PHARMACIST WHO STATED THAT THEY WILL BRING IT UP.ENDORSED TO SUPERVISOR BOTTLE HOUSE CLEANERS NURSE TO ADMINISTER THE K+IV.
[2017-11-09 20:00] VITALS: BP 141/79
--- NOTE | 2017-11-09 20:00 | NUR ---
MS2/RN RECEIVE PATIENT AWAKE, ALERT, ORIENTED, COMFORTABLE, NO C/O PAIN, NO DISTRESS NOTED, CALL LIGHT IN REACH, WILL MONITOR.
[2017-11-10] MEDS: HYDROMORPHONE INJ 0.5 MG/0.5 ML SYRINGE IV PRN ×2 (00:05→05:03)
[2017-11-10] MEDS: MEROPENEM 1,000 MG in IV NS 0.9% 100 ML IV SCH ×2 (02:43→14:00)
[2017-11-10 06:27] LABS: ALBUMIN 1.9 g/dL (3.4-5.0); BILIRUBIN,TOTAL 0.7 mg/dL (0.2-1.0); CALCIUM, SERUM 7.2 mg/dL (8.5-10.1); POTASSIUM 4.6 mmol/L (3.5-5.1); TOTAL PROTEIN, SERUM 5.3 g/dL (6.4-8.2)
[2017-11-10 06:29] LABS: HEMATOCRIT 38 % (39-51); HEMOGLOBIN 13.1 g/dL (13.5-17.5); LYMPHOCYTES # (AUTO) 0.9 /CMM (0.8-4.8); LYMPHOCYTES % (AUTO) 5.4 % (20.0-44.0); MEAN CORPUSCULAR HEMOGLOBIN 31 PG (26.0-33.0); MEAN CORPUSCULAR HGB CONC 34 g/dl (31.0-36.0); MEAN CORPUSCULAR VOLUME 92 fL (80-96); MONOCYTES # (AUTO) 0.8 /CMM (0.1-1.30); MONOCYTES % (AUTO) 4.8 % (2.0-12.0); NEUTROPHILS # (AUTO) 14.4 /CMM (1.8-8.9); NEUTROPHILS % (AUTO) 89.8 % (43.0-81.0); PLATELET COUNT (AUTO) 215 /CMM (150-450); RDW COEFFICIENT OF VARIATION 14.1 (11.5-15.0); RED BLOOD CELL COUNT(AUTO) 4.18 MIL/uL (4.5-6.0); WHITE BLOOD COUNT (AUTO) 16.1 K/uL (4.3-11.0)
--- NOTE | 2017-11-10 07:11 | NUR ---
MS2/RN PATIENT AWAKE, ALERT, ORIENTED, COMFORTABLE, NO DISTRESS NOTED, IVF INFUSING WELL, ALL NEEDS ATTENDED AT THIS TIME. WILL CONTINUE TO MONITOR.
[2017-11-10 08:00] VITALS: BP 153/87
--- NOTE | 2017-11-10 08:20 | NUR ---
MS/RN AM NOTE PATIENT IN BED A/O X 4. NO SIGNS OF ACUTE DISTRESS. NO COMPLAIN OF PAIN OR DISCOMFORT. RESPIRATIONS EVEN AND UNLABORED, NPO STATUS AT THIS TIME FOR PENDING BLOOD WORK. MULTIPLE LAP SITES DRESSINGS INTACT WITH MARY DRAIN SEROSANGUINEOUS FLUID OUTPUT 75 ML. ALL NEEDS ATTENDED TO. CALL LIGHT WITHIN REACH. WILL CONTINUE TO MONITOR TO ENSURE SAFETY. IV TO LEFT FA 20 G AND LEFT HAND INFUSING LR FLUIDS AT 100CC/HR. WILL CONTINUE TO MONITOR.
[2017-11-10] MEDS: ACETYLCYSTEINE 10% SOLN 400 MG/4 ML VIAL PO SCH ×2 (09:00→16:57)
[2017-11-10] MEDS: HEPARIN SODIUM, PORCINE 5000 UNITS/1 ML VIAL SQ SCH (09:24)
[2017-11-10] MEDS: PANTOPRAZOLE 40 MG VIAL IV SCH (09:29)
--- NOTE | 2017-11-10 12:18 | NUR ---
MS/RN NOTES PATIENTS AMYLASE/LIPASE LEVELS RETURNED NORMAL, WILL START ON CLEAR LIQUID DIET AND ADVANCE TOLERATED
[2017-11-10 16:00] VITALS: BP 122/74
[2017-11-10] MEDS ORDERED: HYDR-548 PO ×2 (18:20→18:22)
--- NOTE | 2017-11-10 18:44 | NUR ---
DISCHARGE NOTE ORDER RECEIVED FOR DISCHARGE,ALL DISCHARGE INSTRUCTIONS GIVEN TO PATIENT AND FAMILY, ALL FORMS SIGNED, COMPLETED, COPIED AND PLACED IN CHART. PRESCRIPTION PROVIDED TO PATIENT AND PROVIDED INSTRUCTIONS ON MEDICATION USAGE, DOSAGE, ROUTE, FREQUENCY. PATIENT/FAMILY VERBALIZED UNDERSTANDING. IV REMOVED AND COVERED PROPERLY. ADAME CATH REMOVED, PATIENT ABLE TO VOID AFTER. PATIENT AGREED TO DISCHARGE, LEFT HOSPITAL WITH SON VIA PRIVATE CAR.
== END 2017-11-10 18:30 | disposition home or self-care (01) | DRG 853 ==
LOC: MEDSG2 21:08 → ICU 11-05 12:10 → MEDSG2 11-07 18:38
PROVIDERS: ADMIT Nurse Practitioner Acute Care; ATTEND Nurse Practitioner Acute Care
PROC: 0FT44ZZ Resection of Gallbladder, Percutaneous Endoscopic Approach (ICD-10-PCS; principal; 2017-11-09 14:28)
DX: A41.9 Sepsis, unspecified organism (principal); J18.9 Pneumonia, unspecified organism; N17.0 Acute kidney failure with tubular necrosis; E43 Unspecified severe protein-calorie malnutrition; K85.10 Biliary acute pancreatitis without necrosis or infection; E44.0 Moderate protein-calorie malnutrition; E87.0 Hyperosmolality and hypernatremia; K80.00 Calculus of gallbladder with acute cholecystitis without obstruction; K29.80 Duodenitis without bleeding; K30 Functional dyspepsia; R22.42 Localized swelling, mass and lump, left lower limb; E86.0 Dehydration; E86.1 Hypovolemia; I70.0 Atherosclerosis of aorta
CPT/HCPCS: 36415; 36600; 71045-TC; 78226; 80048-TC; 80053-TC; 80061-TC; 80076-TC; 81000-TC; 82150-TC; 82803-TC; 82977-TC; 83615-TC; 83690-TC; 83735-TC; 84100-TC; 85025-TC; 85730-TC; 86301; 87081-TC; 88304-TC; 88305-TC; 93307-TC; 94799-TC; 97110-TC; 97116-TC; 97530-TC; A4216; A4606; A6209; A9537; C9113; J0330; J0456; J0696; J1170; J1644; J1650; J2185; J2405; J3010; J3370; J3490; J7030; J7060; J7070; J7120; Z7610

== ENCOUNTER 2017-11-21 13:04 | Outpatient (CLI) | payer BC | END 2017-11-21 23:59 | disposition home or self-care (01) | LOC: LAB 13:04 | PROVIDERS: ATTEND Surgery | DX: C25.9 Malignant neoplasm of pancreas, unspecified (principal) | CPT/HCPCS: 36415; 88305-TC; 88312-TC; 89051-TC ==